=== PATIENT | female | born 1990 | race Caucasian/White ===

== ENCOUNTER 2020-12-26 19:39 | Inpatient (IN) | payer MEDICAID ==
[~2020-12-26] VITALS: Ht 154.9 cm; Wt 54.4 kg
--- NOTE | 2020-12-26 02:00 | NUR ---
RN NOTES PT IS A DIRECT ADMIT FROM [facility] PT ARRIVED VIA [facility] PT WAS ABLE TO WALK FROM [facility] TO BED PT HAS STEADY GAIT. PT IS ALERT AND ORIENTED X4 NO PAIN OR DISCOMFORT VISIBLE OR REPORTED AT THIS TIME.PT SKIN IS IN TACT NO DISCOLORATION OR EDEMA NOTED ON ANY EXTREMITY. PT HAS IV ACCESS ON THE LEFT AC # 20G INTACT FLUSHING WELL. NO SWELLING OR REDNESS NOTED AT SITE. PT ORIENTED TO ROOM AND UNIT. ALL NURSING NEEDS MET AT THIS TIME.CALL LIGHT WITHIN REACH SAFETY MEASURES FOLLOWED WILL CONTINUE TO MONITOR.
[2020-12-26 20:00] VITALS: BP 121/67
[2020-12-26] MEDS ORDERED: MAGNESIUM HYDROXIDE 30 ML UDC PO PRN (22:30)
[2020-12-26] MEDS ORDERED: Z GUARD REMEDY 2 OZ OINT TP PRN (22:30)
[2020-12-26] MEDS ORDERED: HYDROCODONE/APAP 5/325MG TABLET PO PRN (22:30)
[2020-12-26] MEDS ORDERED: MAG HYDROX/AL HYDROX/SIMETH 30 ML UDC PO PRN (22:30)
[2020-12-26] MEDS ORDERED: ZOLPIDEM TARTRATE 5 MG TABLET PO PRN (22:30)
[2020-12-26] MEDS ORDERED: MORPHINE SULFATE INJ 2 MG/ML DISP.SYRIN IV PRN (22:30)
[2020-12-26] MEDS ORDERED: ACETAMINOPHEN 325 MG TABLET PO PRN (22:30)
[2020-12-26] MEDS ORDERED: ONDANSETRON HCL/PF 4 MG/2 ML VIAL IVP PRN (22:30)
[2020-12-27] MEDS ORDERED: ALPRAZOLAM 0.25 MG TABLET PO PRN (01:00)
--- NOTE | 2020-12-27 06:43 | NUR ---
RN NOTES PT IS ALERT AND ORIENTED X4 NO PAIN OR DISCOMFORT VISIBLE OR REPORTED AT THIS TIME. PT HAS IV ACCESS ON THE LEFT AC # 20G INTACT FLUSHING WELL. NO SWELLING OR REDNESS NOTED AT SITE. PT ORIENTED TO ROOM AND UNIT. ALL NURSING NEEDS MET AT THIS TIME. CONSENT OBTAINED FOR US GUIDED THORACENTESIS .CALL LIGHT WITHIN REACH SAFETY MEASURES FOLLOWED WILL ENDORSE CARE.
[2020-12-27 06:47] LABS: BASOPHILS % (AUTO) 0.4 % (0.0-2.0); EOSINOPHILS % (AUTO) 2.7 % (0.0-6.0); HEMATOCRIT 42 % (33-45); HEMOGLOBIN 13.9 g/dL (11.5-14.8); LYMPHOCYTES # (AUTO) 0.9 /CMM (0.8-4.8); LYMPHOCYTES % (AUTO) 9.7 % (20.0-44.0); MEAN CORPUSCULAR HGB CONC 33 g/dl (31.0-36.0); MEAN CORPUSCULAR VOLUME 85 fL (82-100); MONOCYTES # (AUTO) 0.5 /CMM (0.1-1.30); MONOCYTES % (AUTO) 5.1 % (2.0-12.0); NEUTROPHILS # (AUTO) 7.4 /CMM (1.8-8.9); NEUTROPHILS % (AUTO) 82.1 % (43.0-81.0); PLATELET COUNT (AUTO) 411 /CMM (150-450); RED BLOOD CELL COUNT(AUTO) 4.91 MIL/uL (4.0-5.2)
[2020-12-27 07:04] LABS: CALCIUM, SERUM 9.2 mg/dL (8.5-10.1); CREATININE 0.8 mg/dL (0.6-1.3); MAGNESIUM 2.1 mg/dL (1.8-2.4); PHOSPHORUS 3.6 mg/dL (2.5-4.9); POTASSIUM 3.9 mmol/L (3.5-5.1)
[2020-12-27 07:18] LABS: THYROID STIMULATING HORMONE 9.379 uIU/mL (0.358-3.74)
[2020-12-27 08:00] VITALS: BP 129/78
--- NOTE | 2020-12-27 08:00 | NUR ---
m/s employment instructional associate: notes received pt in bed awake, a/ox4. friend at bedside. denies chest pain, sob, or any discomfort. instructed to call for assistance. pt for us guided thoracentesis today. will continue to monitor.
[2020-12-27 08:09] VITALS: BP 129/78
[2020-12-27] MEDS ORDERED: NORG1TAB12 PO (08:26)
--- NOTE | 2020-12-27 09:00 | NUR ---
m/s machine shop lead man: pulmo consult seen and examined by dr. kim. md updated plan of care, pt verbalized understanding. received verbal order from dr. kim to send specimen (us guided thoracentesis). orders carried out.
--- NOTE | 2020-12-27 09:12 | NUR ---
m/s chicken cutter: notes s/p us guided thoracentesis with 500ml removed from right chest by rafael maier. well. stat chest x-ray ordered. specimen sent to pathology.
[2020-12-27] MEDS: PANTOPRAZOLE 40 MG TABLET.DR PO SCH (09:31)
--- NOTE | 2020-12-27 09:44 | NUR ---
m/s machine compositor: business performance analyst/oncologist consult seen and examined by samanta (ANNE MARIE). palliative care coordinator discussed plan of care. friend remains at bedside. will continue to monitor.
--- NOTE | 2020-12-27 10:20 | NUR ---
m/s zinc plating machine operator: notes samanta (SWITCHBOARD INSTALLER) at bedside and discussed more tests for pt. cousin and pt verbalized understanding. pt consented on ct abd/pelvis with contrast. will keep pt npo for lunch, pt aware.
[2020-12-27 10:34] LABS: ALBUMIN 3.1 g/dL (3.4-5.0); BILIRUBIN,DIRECT 0.1 mg/dL (0.0-0.2); BILIRUBIN,TOTAL 0.3 mg/dL (0.2-1.0); TOTAL PROTEIN, SERUM 8.3 g/dL (6.4-8.2)
[2020-12-27] MEDS ORDERED: DIATR MEGLU/DIATRIZOATE SODIUM 30 ML BOTTLE (GASTROGRAPHIN) ONE (13:07)
--- NOTE | 2020-12-27 13:20 | NUR ---
m/s generation technologist: notes sandra (tech) here and hand me the oral contrast to give to pt with instructions. oral contrast given to pt and verbalized understanding.
[2020-12-27] MEDS ORDERED: IOHEXOL-300 100 ML VIAL IV ONE (15:48)
[2020-12-27] MEDS ORDERED: CT SWABBABLE VALVE TRANS SET 1 EA INFUS.SET MC ONE (15:49)
[2020-12-27] MEDS ORDERED: IV NS 0.9% 250 ML IV ONE (15:49)
--- NOTE | 2020-12-27 15:53 | NUR ---
m/s ostomy care nurse: notes picked up for ct via wheelchair accompanied by tech with consent.
[2020-12-27 16:00] VITALS: BP 123/65
--- NOTE | 2020-12-27 16:15 | NUR ---
m/s rn ccu: notes pt back from ct abd/pelvis. mother remains at bedside. will continue to monitor.
[2020-12-27 16:20] VITALS: BP 123/65
--- NOTE | 2020-12-27 18:30 | NUR ---
m/s mangle operator garments: notes noted 3 family members inside the room and waiting for dr. lr to see her. informed them that dr. lr will be seeing her and i need only 1 family member to stay here for visiting hours for 30 minutes. called security and made aware. cn made aware.
--- NOTE | 2020-12-27 19:09 | NUR ---
m/s machine stone polisher: notes report given to clarisa (rn) for continuity of care.
--- NOTE | 2020-12-27 19:15 | NUR ---
MS RN OPENING NOTE PATIENT IN BED SITTING, WITH COUSIN AT BEDSIDE FOR EMOTIONAL SUPPORT. PATIENT MILDLY ANXIOUS. A/O X 4. PATIENT IS AMBULATORY. IV ACCESS INTACT. NO REPORTS OF PAIN AT THIS TIME. BREATHING EVEN AND UNLABORED, NO SOB, DYSPNEA. PATIENT INDEPENDENT AND AMBULATORY. SAFETY MEASURES IN PLACE: CALL LIGHT WITHIN REACH, SIDE RAILS UP, BED IN LOCKED AND LOWEST POSITION. WILL MONITOR PATIENT CLOSELY.
--- NOTE | 2020-12-27 19:45 | NUR ---
MS RN NOTE PATIENT SEEN BY DR. WILLIAMSON. DISCUSSED RESULTS OF IMAGING STUDIES WITH PATIENT AND FAMILY WELL POSSIBLE PROCEDURES. DR. WILLIAMSON INSTRUCTED FAMILY TO OBTAIN A COPY OF THE IMAGES FROM IMAGING STUDIES OF PATIENT FROM [facility]. NO NEW ORDERS AT THIS TIME.
[2020-12-27 20:00] VITALS: BP 120/70
--- NOTE | 2020-12-27 21:30 | NUR ---
MS RN NOTE PATIENT REQUESTED SLEEPING AID. AMBIEN 5 MG GIVEN PRN FOR SLEEP.
--- NOTE | 2020-12-28 06:59 | NUR ---
MS RN CLOSING NOTE PATIENT RESTING, EASILY AROUSED. A/O X4. FATHER AT BEDSIDE FOR EMOTIONAL SUPPORT. PATIENT DOES NOT COMPLAIN OF PAIN/ N/V AT THIS TIME. BREATHING EVEN AND UNLABORED. NO SOB, DYSPNEA, AND COUGH NO LONGER PRESENT. ALL NEEDS MET AND ATTENDED. SAFETY MEASURES MAINTAINED. WILL ENDORSE TO DAY SHIFT NURSE FOR SHANNON.
--- NOTE | 2020-12-28 07:27 | NUR ---
MS RN OPENING NOTES RECEIVED PATIENT IN BED, AWAKE, A/O X4, FAMILY AT THE BEDSIDE. PATIENT SEEMS EMOTIONAL. PATIENT ON ROOM AIR; BREATHING EVEN AND UNLABORED. NO COMPLAINS OF PAIN AT THIS TIME. LAC IV ACCESS PRESENT AND INTACT SL. SAFETY PRECAUTIONS IN PLACE; BED IN LOW POSITION AND LOCKED, RAILS UPX2, CALL LIGHT WITHIN REACH. WILL CONTINUE TO MONITOR PATIENT.
[2020-12-28] MEDS: PANTOPRAZOLE 40 MG TABLET.DR PO SCH (07:45)
[2020-12-28 08:00] VITALS: BP 121/75
--- NOTE | 2020-12-28 12:05 | NUR ---
MS AWNING HANGER SUPERVISOR NOTES PATIENT DISCHARGED HOME IN MEDICALLY STABLE CONDITION. PATIENT ON ROOM AIR, A/O X4, ABLE TO MAKE NEEDS KNOWN. ALL DISCHARGE DOCUMENTATION READY; TEACHING PROVIDED TO PATIENT; PATIENT VERBALIZED UNDERSTANDING. INFORMED PATIENT PER MD ORDER TO MAKE AN APPOINTMENT WITH DR GONG; ADDRESS AND PHONE NUMBER PROVIDED; PATIENT VERBALIZED UNDERSTANDING. BELONGINGS ACCOUNTED FOR AND FORM SIGNED. BEFORE LEAVING THE UNIT IV ACCESS WAS REMOVED. PATIENT LEFT THE FLOOR AT 1200 ACCOMPANIED BY FAMILY AND LEFT THE HOSPITAL VIA PRIVATE CAR.
== END 2020-12-28 12:00 | disposition home or self-care (01) | DRG 663 ==
LOC: MED 19:58
PROVIDERS: ADMIT Student in an Organized Health Care Education/Training Program; ATTEND Nurse Practitioner Acute Care
PROC: 0W993ZZ Drainage of Right Pleural Cavity, Percutaneous Approach (ICD-10-PCS; principal; 2020-12-27)
DX: R59.0 Localized enlarged lymph nodes (principal); J90 Pleural effusion, not elsewhere classified; R91.8 Other nonspecific abnormal finding of lung field; Z80.0 Family history of malignant neoplasm of digestive organs; R94.6 Abnormal results of thyroid function studies
CPT/HCPCS: 36415; 71045-TC; 80048-TC; 80061-TC; 80076-TC; 82378; 83615-TC; 83735-TC; 84100-TC; 84439-TC; 84443-TC; 85025-TC; 85610-TC; 86706; 86803; 87070-TC; 87081-TC; 87116; 87186-TC; 87206; 87340; 87806; 89051-TC; G0378; J7050; Q9963; Q9967